=== PATIENT | male | born 1995 | race Two or more races ===

== ENCOUNTER 2017-11-29 10:40 | Emergency (ER) | payer BC ==
[~2017-11-29] VITALS: Ht 172.7 cm; Wt 81.6 kg
[2017-11-29 11:00] VITALS: BP 122/62
== END 2017-11-29 11:44 | disposition home or self-care (01) ==
LOC: ER 10:40
DX: R11.2 Nausea with vomiting, unspecified (principal)
CPT/HCPCS: 81002